=== PATIENT | male | born 1975 | race Two or more races ===

== ENCOUNTER 2022-03-13 17:22 | Emergency (ER) | payer SELFPAY ==
[~2022-03-13] VITALS: Ht 165.1 cm; Wt 72.6 kg
--- NOTE | 2022-03-13 19:47 | NUR ---
PATIENT JUST PLACED IN ROOM 4B AT THIS TIME. PATIENT WAS WAITING IN WAITING DUE TO NO BEDS AVAILABLE IN THE ER.
--- NOTE | 2022-03-13 19:55 | NUR ---
Dr. Anderson at bedside for MSE.
[2022-03-13] MEDS ORDERED: CLONIDINE HCL 0.1 MG TABLET PO ONE (20:00)
[2022-03-13] MEDS ORDERED: CLONIDINE HCL 0.1 MG TABLET ONE (20:03)
[2022-03-13 20:28] LABS: HEMATOCRIT 41.2 % (36.7-47.1); MEAN CORPUSCULAR HEMOGLOBIN 29.6 uug (23.8-33.4); MEAN CORPUSCULAR VOLUME 87.4 fL (73.0-96.2); PLATELET COUNT (AUTO) 209 K/uL (152-348)
[2022-03-13 20:32] LABS: CARBON DIOXIDE 29 mmol/L (21-32); CHLORIDE 105 mmol/L (98-107); CREATININE 0.9 mg/dL (0.6-1.3); GLUCOSE 103 mg/dL (74-106); POTASSIUM 3.8 mmol/L (3.5-5.1); UREA NITROGEN, BLOOD 14 mg/dL (7-18)
[2022-03-13 20:39] LABS: ETHANOL 89 MG/DL (0-0)
[2022-03-13 20:41] LABS: ALANINE AMINOTRANSFERASE 34 U/L (16-63); ALKALINE PHOSPHATASE 56 U/L (50-136); ASPARTATE AMINOTRANSFERASE 21 U/L (15-37); BILIRUBIN,DIRECT 0.1 mg/dL (0.0-0.2); BILIRUBIN,TOTAL 0.5 mg/dL (0.2-1.0); TOTAL PROTEIN, SERUM 7.2 g/dL (6.4-8.2)
[2022-03-13] MEDS ORDERED: THIAMINE HCL 100 MG TABLET PO ONE (21:00)
--- NOTE | 2022-03-13 21:22 | NUR ---
dr. Anderson at bedside speaking with pt and his .
[2022-03-13] MEDS ORDERED: THIAMINE HCL 100 MG TABLET ONE (21:27)
[2022-03-13] MEDS ORDERED: CLON0.1T PO (21:32)
--- NOTE | 2022-03-13 21:38 | NUR ---
Patient discharged to home in stable condition. Written and verbal after care instructions given. Patient verbalizes understanding of instructions. Stressed follow up or return to ER for worsening s/s.
[2022-03-13 21:39] VITALS: BP 154/98
== END 2022-03-13 21:40 | disposition home or self-care (01) ==
LOC: ER 17:24
DX: R51.9 Headache, unspecified (principal); I10 Essential (primary) hypertension; R53.81 Other malaise; F41.9 Anxiety disorder, unspecified; J45.909 Unspecified asthma, uncomplicated; R35.1 Nocturia; Z72.89 Other problems related to lifestyle; R03.0 Elevated blood-pressure reading, without diagnosis of hypertension
CPT/HCPCS: 36415; 71045; 83735; 84484; 85025; 93005; A4663; G0480